=== PATIENT | male | born 1955 | race Caucasian/White ===

== ENCOUNTER 2021-06-30 11:32 | Inpatient (IN) | payer MEDICARE ==
[~2021-06-30] VITALS: Ht 182.9 cm; Wt 79.2 kg
[2021-06-30] MEDS ORDERED: SODIUM CHLORIDE 0.9% 500 ML IV ONE (11:45)
[2021-06-30] MEDS ORDERED: ASPirin 325 MG TAB PO ONE (12:30)
[2021-06-30 13:27] LABS: Basophils # (auto) 0 10 ^3/uL (0-0.2); Basophils % (auto) 0.1 % (0.0-2.0); Eosinophils # (auto) 0 10 ^3/uL (0-0.8); Hematocrit 41.1 % (41.0-53.0); Hemoglobin 14.2 g/dL (13.5-17.5); Lymphocytes # (auto) 0.4 10 ^3/uL (0.4-5.4); Lymphocytes % (auto) 10.2 % (10.0-50.0); Mean Corpuscular Hemoglobin 31.2 pg (28.0-32.0); Mean Corpuscular Hgb Conc. 34.6 g/dL (32.0-36.0); Mean Corpuscular Volume 90.3 fL (80.0-100.0); Monocytes # (auto) 0.4 10 ^3/uL (0-1.3); Monocytes % (auto) 10.9 % (0.0-12.0); Neutrophils # (auto) 2.9 10 ^3/uL (1.6-8.6); Neutrophils % (auto) 78.8 % (37.0-80.0); Nucleated Red Blood Cells % 0.2 %; Red Blood Cells 4.55 10^6/uL (4.5-5.90); Red Cell Distribution Width 13.1 % (11.8-14.3); White Blood Cell 3.7 10^3/uL (4.4-10.8)
[2021-06-30 13:41] LABS: Albumin 2.7 g/dL (3.4-5.0); Calcium 7.7 mg/dL (8.5-10.1); Magnesium 2.2 mg/dL (1.6-2.6); Potassium 3.3 mmol/L (3.5-5.1)
[2021-06-30 13:42] LABS: INR 1.11 (0.9-1.15); Partial Thromboplastin Time 34.5 sec (23.6-33.0)
[2021-06-30 13:46] LABS: BUN/Creatinine Ratio 18.4; Bilirubin, Total 0.5 mg/dL (0.2-1.0); Total Protein 6.6 g/dL (6.4-8.2)
[2021-06-30] MEDS ORDERED: POTASSIUM CHL 20 Meq TABLET PO ONE (14:00)
[2021-06-30] MEDS ORDERED: HEPARIN SODIUM (PORCINE) 5000 UNITS/ML 1ML VIAL IV ONE (14:15)
[2021-06-30] MEDS: HEPARIN DRIP/D5W 100UNITS/ML 250 ML IV SCH (14:45)
[2021-06-30 14:50] LABS: Basophils # (auto) 0 10 ^3/uL (0-0.2); Basophils % (auto) 0.3 % (0.0-2.0); Eosinophils # (auto) 0 10 ^3/uL (0-0.8); Hematocrit 40.8 % (41.0-53.0); Hemoglobin 14.2 g/dL (13.5-17.5); Lymphocytes # (auto) 0.4 10 ^3/uL (0.4-5.4); Lymphocytes % (auto) 12.8 % (10.0-50.0); Mean Corpuscular Hemoglobin 31.1 pg (28.0-32.0); Mean Corpuscular Hgb Conc. 34.7 g/dL (32.0-36.0); Mean Corpuscular Volume 89.7 fL (80.0-100.0); Monocytes # (auto) 0.3 10 ^3/uL (0-1.3); Monocytes % (auto) 9.7 % (0.0-12.0); Neutrophils # (auto) 2.7 10 ^3/uL (1.6-8.6); Neutrophils % (auto) 77.2 % (37.0-80.0); Nucleated Red Blood Cells % 0.2 %; Red Blood Cells 4.55 10^6/uL (4.5-5.90); Red Cell Distribution Width 13.3 % (11.8-14.3); White Blood Cell 3.4 10^3/uL (4.4-10.8)
[2021-06-30 15:28] VITALS: BP 129/71
[2021-06-30] MEDS ORDERED: MORPHINE SULFATE INJECTION 2 MG/ML SYRG IV PRN (15:30)
[2021-06-30] MEDS ORDERED: NITROGLYCERIN 0.4 MG SL TAB SL PRN (15:30)
[2021-06-30] MEDS ORDERED: diphenhdrAMINE HCL 50 MG/1 ML VL IV PRN (15:30)
[2021-06-30] MEDS ORDERED: TEMAZEPAM 15 MG CAP PO PRN (15:30)
[2021-06-30] MEDS ORDERED: traMADol HCL 50 MG TAB PO PRN (15:30)
[2021-06-30] MEDS ORDERED: REMDESIVIR PER PHARMACY 0 ML IV SCH (15:30)
[2021-06-30] MEDS ORDERED: PROMETHAZINE HCL 25 MG/ML 1ML IV PRN (15:30)
[2021-06-30] MEDS ORDERED: IPRATROPIUM BROMIDE HFA AER IN PRN (15:30)
[2021-06-30] MEDS ORDERED: DEXTROSE (50%) 50ML SYRG IV PRN (15:30)
[2021-06-30] MEDS: AZITHROMYCIN 500MG/ 250ML 250 ML IV SCH (16:30)
[2021-06-30] MEDS ORDERED: IPRATROPIUM BROMIDE HFA AER IN SCH (18:00)
[2021-06-30] MEDS ORDERED: REMDESIVIR 200 MG in NS 210ml LOADING DOSE ADULT IV ONE (18:00)
[2021-06-30] MEDS: CHOLECALCIFEROL (VITD3) 2,000 UNIT CAP/TAB PO SCH (18:13)
[2021-06-30] MEDS: cefTRIAXone 1GM/50ML D5W 50 ML IV SCH (18:13)
[2021-06-30] MEDS: IVERMECTIN 3 MG TAB PO SCH (18:15)
[2021-06-30] MEDS: DexAMETHasone SOD PHOS 10MG/1ML VIAL INJ IV SCH (18:15)
[2021-06-30] MEDS: ASCORBIC ACID 1,000 MG TAB PO SCH (18:15)
[2021-06-30] MEDS: ZINC SULFATE 220mg CAP or TAB PO SCH (18:15)
[2021-06-30] MEDS: BUDESONIDE (INHALATION) 180 MCG IH IN SCH (18:30)
[2021-06-30] MEDS: ACCU-CHEK COMFORT CURVE STRIP VI SCH ×2 (18:32→22:00)
[2021-06-30] MEDS: ALBUTEROL SULF HFA 90MCG INH 200DOSE IN PRN (19:20)
[2021-06-30] MEDS: SODIUM CHLORIDE 0.9% 1,000 ML IV SCH ×2 (19:46→22:51)
[2021-06-30 20:04] LABS: Urine Bacteria NONE SEEN /hpf (None Seen); Urine Blood Negative /uL (Negative); Urine Mucus FEW (None Seen); Urine Specific Gravity 1.043 (1.001-1.035); Urine WBC 1 /hpf (0 - 3)
[2021-06-30 20:25] LABS: Amphetamine Screen, Urine NEGATIVE (NEGATIVE); Barbiturate Scree,Urine NEGATIVE (NEGATIVE); Benzodiazephine Screen, Urine NEGATIVE (NEGATIVE); Cannabinoid Screen, Urine NEGATIVE (NEGATIVE); Cocaine Screen, Urine NEGATIVE (NEGATIVE); Opiate Scree,Urine NEGATIVE (NEGATIVE); Phencyclidine Screen, Urine NEGATIVE (NEGATIVE)
[2021-06-30] MEDS: METOPROLOL TARTRATE 25 MG TAB PO SCH (22:00)
[2021-06-30] MEDS: FLORASTOR (S. BOULARDII) 250 MG CAP PO SCH (22:00)
[2021-07-01 02:57] LABS: Basophils # (auto) 0 10 ^3/uL (0-0.2); Basophils % (auto) 0.2 % (0.0-2.0); Eosinophils # (auto) 0 10 ^3/uL (0-0.8); Hematocrit 40.9 % (41.0-53.0); Hemoglobin 14.2 g/dL (13.5-17.5); Lymphocytes # (auto) 0.4 10 ^3/uL (0.4-5.4); Lymphocytes % (auto) 12.5 % (10.0-50.0); Mean Corpuscular Hemoglobin 31.6 pg (28.0-32.0); Mean Corpuscular Hgb Conc. 34.8 g/dL (32.0-36.0); Mean Corpuscular Volume 90.7 fL (80.0-100.0); Monocytes # (auto) 0.4 10 ^3/uL (0-1.3); Monocytes % (auto) 12.5 % (0.0-12.0); Neutrophils # (auto) 2.3 10 ^3/uL (1.6-8.6); Neutrophils % (auto) 74.8 % (37.0-80.0); Nucleated Red Blood Cells % 0.2 %; Red Blood Cells 4.51 10^6/uL (4.5-5.90); Red Cell Distribution Width 13.2 % (11.8-14.3)
[2021-07-01 03:19] LABS: Albumin 2.6 g/dL (3.4-5.0); BUN/Creatinine Ratio 17.5; Calcium 7.8 mg/dL (8.5-10.1); Potassium 3.8 mmol/L (3.5-5.1)
[2021-07-01 03:24] LABS: Bilirubin, Total 0.4 mg/dL (0.2-1.0); Total Protein 6.2 g/dL (6.4-8.2)
[2021-07-01 03:43] LABS: INR 1.1 (0.9-1.15)
[2021-07-01 04:30] LABS: Partial Thromboplastin Time 70.4 sec (23.6-33.0)
[2021-07-01] MEDS: BUDESONIDE (INHALATION) 180 MCG IH IN SCH (07:06)
[2021-07-01] MEDS: ALBUTEROL SULF HFA 90MCG INH 200DOSE IN PRN (07:07)
[2021-07-01 07:35] LABS: INR 1.1 (0.9-1.15); Partial Thromboplastin Time 66.3 sec (23.6-33.0)
[2021-07-01] MEDS: ACCU-CHEK COMFORT CURVE STRIP VI SCH ×4 (07:35→21:58)
[2021-07-01] MEDS: IVERMECTIN 3 MG TAB PO SCH (08:01)
[2021-07-01] MEDS: cefTRIAXone 1GM/50ML D5W 50 ML IV SCH (08:01)
[2021-07-01] MEDS: ASCORBIC ACID 1,000 MG TAB PO SCH (08:02)
[2021-07-01] MEDS: ZINC SULFATE 220mg CAP or TAB PO SCH (08:02)
[2021-07-01] MEDS: ASPirin 81 mg TAB PO SCH (08:02)
[2021-07-01] MEDS: PANTOPRAZOLE 40 MG TAB PO SCH (08:02)
[2021-07-01] MEDS: CHOLECALCIFEROL (VITD3) 2,000 UNIT CAP/TAB PO SCH (08:02)
[2021-07-01] MEDS: DexAMETHasone SOD PHOS 10MG/1ML VIAL INJ IV SCH (08:03)
[2021-07-01] MEDS: FLORASTOR (S. BOULARDII) 250 MG CAP PO SCH ×2 (08:04→11:24)
[2021-07-01] MEDS: METOPROLOL TARTRATE 25 MG TAB PO SCH ×2 (10:00→22:52)
[2021-07-01] MEDS: NITROGLYCERIN 0.2MG/HR TOPICAL PATCH TD SCH (10:00)
[2021-07-01] MEDS: AZITHROMYCIN 500MG/ 250ML 250 ML IV SCH (11:40)
[2021-07-01] MEDS: HEPARIN DRIP/D5W 100UNITS/ML 250 ML IV SCH (14:30)
[2021-07-01] MEDS: REMDESIVIR 100mg 100 MG in SODIUM CHL 0.9% 230 ML IV SCH (15:02)
[2021-07-01 15:46] LABS: INR 1.1 (0.9-1.15); Partial Thromboplastin Time 60.6 sec (23.6-33.0)
[2021-07-01] MEDS ORDERED: FUROSEMIDE 20 MG/2 ML VIAL IV ONE (16:45)
[2021-07-01] MEDS: ENOXAPARIN SOD 80 MG/0.8ML SYRINGE SC SCH (22:51)
[2021-07-02] MEDS: BUDESONIDE (INHALATION) 180 MCG IH IN SCH ×3 (00:58→22:00)
[2021-07-02 06:26] LABS: Basophils # (auto) 0 10 ^3/uL (0-0.2); Eosinophils # (auto) 0 10 ^3/uL (0-0.8); Hematocrit 40.1 % (41.0-53.0); Hemoglobin 14.3 g/dL (13.5-17.5); Lymphocytes # (auto) 0.5 10 ^3/uL (0.4-5.4); Lymphocytes % (auto) 10.7 % (10.0-50.0); Mean Corpuscular Hemoglobin 32.5 pg (28.0-32.0); Mean Corpuscular Hgb Conc. 35.7 g/dL (32.0-36.0); Mean Corpuscular Volume 90.9 fL (80.0-100.0); Monocytes # (auto) 0.7 10 ^3/uL (0-1.3); Monocytes % (auto) 14.6 % (0.0-12.0); Neutrophils # (auto) 3.7 10 ^3/uL (1.6-8.6); Neutrophils % (auto) 74.7 % (37.0-80.0); Nucleated Red Blood Cells % 0.2 %; Red Blood Cells 4.42 10^6/uL (4.5-5.90); Red Cell Distribution Width 13.1 % (11.8-14.3); White Blood Cell 4.9 10^3/uL (4.4-10.8)
[2021-07-02 06:48] LABS: Albumin 2.5 g/dL (3.4-5.0); Calcium 7.8 mg/dL (8.5-10.1); Potassium 3.4 mmol/L (3.5-5.1)
[2021-07-02 06:53] LABS: Bilirubin, Total 0.4 mg/dL (0.2-1.0); Total Protein 6.3 g/dL (6.4-8.2)
[2021-07-02] MEDS: ACCU-CHEK COMFORT CURVE STRIP VI SCH ×4 (07:11→22:06)
[2021-07-02] MEDS: ALBUTEROL SULF HFA 90MCG INH 200DOSE IN PRN (07:41)
[2021-07-02] MEDS: cefTRIAXone 1GM/50ML D5W 50 ML IV SCH (09:24)
[2021-07-02] MEDS: FLORASTOR (S. BOULARDII) 250 MG CAP PO SCH ×2 (10:49→22:05)
[2021-07-02] MEDS: ASPirin 81 mg TAB PO SCH (10:49)
[2021-07-02] MEDS: AZITHROMYCIN 500MG/ 250ML 250 ML IV SCH (10:49)
[2021-07-02] MEDS: METOPROLOL TARTRATE 25 MG TAB PO SCH ×2 (10:50→22:06)
[2021-07-02] MEDS: FUROSEMIDE 20 MG/2 ML VIAL IV SCH (10:50)
[2021-07-02] MEDS: ZINC SULFATE 220mg CAP or TAB PO SCH (10:50)
[2021-07-02] MEDS: ASCORBIC ACID 1,000 MG TAB PO SCH (10:51)
[2021-07-02] MEDS: PANTOPRAZOLE 40 MG TAB PO SCH (10:51)
[2021-07-02] MEDS: CHOLECALCIFEROL (VITD3) 2,000 UNIT CAP/TAB PO SCH (10:51)
[2021-07-02] MEDS: ENOXAPARIN SOD 80 MG/0.8ML SYRINGE SC SCH ×2 (10:51→22:06)
[2021-07-02] MEDS: NITROGLYCERIN 0.2MG/HR TOPICAL PATCH TD SCH (10:53)
[2021-07-02] MEDS: DexAMETHasone SOD PHOS 10MG/1ML VIAL INJ IV SCH (10:53)
[2021-07-02] MEDS ORDERED: POTASSIUM CHL 20 Meq TABLET PO ONE (13:00)
[2021-07-02] MEDS: REMDESIVIR 100mg 100 MG in SODIUM CHL 0.9% 230 ML IV SCH (15:15)
[2021-07-03] MEDS: BUDESONIDE (INHALATION) 180 MCG IH IN SCH ×2 (06:26→22:30)
[2021-07-03] MEDS: ALBUTEROL SULF HFA 90MCG INH 200DOSE IN PRN ×2 (06:26→23:23)
[2021-07-03] MEDS: ACCU-CHEK COMFORT CURVE STRIP VI SCH ×4 (06:36→22:05)
[2021-07-03 08:15] LABS: Potassium 3.2 mmol/L (3.5-5.1)
[2021-07-03 08:26] LABS: Albumin 2.6 g/dL (3.4-5.0); BUN/Creatinine Ratio 21.7; Bilirubin, Total 0.4 mg/dL (0.2-1.0); Total Protein 6.2 g/dL (6.4-8.2)
[2021-07-03] MEDS: cefTRIAXone 1GM/50ML D5W 50 ML IV SCH (08:44)
[2021-07-03] MEDS: DexAMETHasone SOD PHOS 10MG/1ML VIAL INJ IV SCH (09:51)
[2021-07-03] MEDS: FUROSEMIDE 20 MG/2 ML VIAL IV SCH (09:52)
[2021-07-03] MEDS: METOPROLOL TARTRATE 25 MG TAB PO SCH ×2 (09:52→22:04)
[2021-07-03] MEDS: FLORASTOR (S. BOULARDII) 250 MG CAP PO SCH ×2 (09:52→22:40)
[2021-07-03] MEDS: ZINC SULFATE 220mg CAP or TAB PO SCH (09:52)
[2021-07-03] MEDS: PANTOPRAZOLE 40 MG TAB PO SCH (09:52)
[2021-07-03] MEDS: ASPirin 81 mg TAB PO SCH (09:52)
[2021-07-03] MEDS: NITROGLYCERIN 0.2MG/HR TOPICAL PATCH TD SCH (09:53)
[2021-07-03] MEDS: CHOLECALCIFEROL (VITD3) 2,000 UNIT CAP/TAB PO SCH (09:53)
[2021-07-03] MEDS: ASCORBIC ACID 1,000 MG TAB PO SCH (09:53)
[2021-07-03] MEDS: ENOXAPARIN SOD 80 MG/0.8ML SYRINGE SC SCH ×2 (09:53→22:04)
[2021-07-03] MEDS ORDERED: POTASSIUM CHL 20 Meq TABLET PO ONE (10:30)
[2021-07-03] MEDS: AZITHROMYCIN 500MG/ 250ML 250 ML IV SCH (10:44)
[2021-07-03] MEDS: SALINE 0.65 % NASAL SPRAY 45ML BOTTLE EACHNOSTRI SCH ×3 (13:05→22:02)
[2021-07-03] MEDS: REMDESIVIR 100mg 100 MG in SODIUM CHL 0.9% 230 ML IV SCH (15:38)
[2021-07-03 16:08] VITALS: BP 122/60
[2021-07-03] MEDS ORDERED: ACETAMINOPHEN 325 MG TAB PO ONE (22:45)
[2021-07-04] MEDS: SALINE 0.65 % NASAL SPRAY 45ML BOTTLE EACHNOSTRI SCH ×4 (05:49→22:00)
[2021-07-04 06:59] LABS: Albumin 2.4 g/dL (3.4-5.0)
[2021-07-04] MEDS: ACCU-CHEK COMFORT CURVE STRIP VI SCH ×4 (06:59→22:02)
[2021-07-04 07:03] LABS: BUN/Creatinine Ratio 27.4; Bilirubin, Total 0.6 mg/dL (0.2-1.0); Total Protein 5.6 g/dL (6.4-8.2)
[2021-07-04] MEDS ORDERED: POTASSIUM CHL 20 Meq TABLET PO ONE (09:30)
[2021-07-04] MEDS: cefTRIAXone 1GM/50ML D5W 50 ML IV SCH (10:20)
[2021-07-04] MEDS: PANTOPRAZOLE 40 MG TAB PO SCH (10:31)
[2021-07-04] MEDS: AZITHROMYCIN 500MG/ 250ML 250 ML IV SCH (10:32)
[2021-07-04] MEDS: FUROSEMIDE 20 MG/2 ML VIAL IV SCH (10:32)
[2021-07-04] MEDS: ASPirin 81 mg TAB PO SCH (10:32)
[2021-07-04] MEDS: DexAMETHasone SOD PHOS 10MG/1ML VIAL INJ IV SCH (10:32)
[2021-07-04] MEDS: ASCORBIC ACID 1,000 MG TAB PO SCH (10:33)
[2021-07-04] MEDS: CHOLECALCIFEROL (VITD3) 2,000 UNIT CAP/TAB PO SCH (10:33)
[2021-07-04] MEDS: NITROGLYCERIN 0.2MG/HR TOPICAL PATCH TD SCH (10:33)
[2021-07-04] MEDS: ENOXAPARIN SOD 80 MG/0.8ML SYRINGE SC SCH ×2 (10:33→22:01)
[2021-07-04] MEDS: METOPROLOL TARTRATE 25 MG TAB PO SCH ×2 (10:33→22:01)
[2021-07-04] MEDS: ZINC SULFATE 220mg CAP or TAB PO SCH (10:33)
[2021-07-04] MEDS: FLORASTOR (S. BOULARDII) 250 MG CAP PO SCH ×2 (10:34→22:01)
[2021-07-04] MEDS: BUDESONIDE (INHALATION) 180 MCG IH IN SCH ×2 (12:51→20:51)
[2021-07-04] MEDS: ALBUTEROL SULF HFA 90MCG INH 200DOSE IN PRN ×2 (12:52→20:51)
[2021-07-04 13:00] VITALS: BP 123/71
[2021-07-04] MEDS: REMDESIVIR 100mg 100 MG in SODIUM CHL 0.9% 230 ML IV SCH (16:03)
[2021-07-04 16:52] VITALS: BP 110/65
[2021-07-04 22:00] VITALS: BP 145/74
[2021-07-05 05:00] VITALS: BP 148/70
[2021-07-05] MEDS: SALINE 0.65 % NASAL SPRAY 45ML BOTTLE EACHNOSTRI SCH ×4 (06:00→21:39)
[2021-07-05] MEDS: ACCU-CHEK COMFORT CURVE STRIP VI SCH ×4 (06:51→21:40)
[2021-07-05 09:00] VITALS: BP 130/82
[2021-07-05] MEDS: DexAMETHasone SOD PHOS 10MG/1ML VIAL INJ IV SCH (09:24)
[2021-07-05] MEDS: ASPirin 81 mg TAB PO SCH (09:24)
[2021-07-05] MEDS: FUROSEMIDE 20 MG/2 ML VIAL IV SCH (09:24)
[2021-07-05] MEDS: FLORASTOR (S. BOULARDII) 250 MG CAP PO SCH ×2 (09:25→21:39)
[2021-07-05] MEDS: ZINC SULFATE 220mg CAP or TAB PO SCH (09:25)
[2021-07-05] MEDS: METOPROLOL TARTRATE 25 MG TAB PO SCH ×2 (09:26→21:40)
[2021-07-05] MEDS: ASCORBIC ACID 1,000 MG TAB PO SCH (09:26)
[2021-07-05] MEDS: CHOLECALCIFEROL (VITD3) 2,000 UNIT CAP/TAB PO SCH (09:26)
[2021-07-05] MEDS: PANTOPRAZOLE 40 MG TAB PO SCH (09:26)
[2021-07-05] MEDS: NITROGLYCERIN 0.2MG/HR TOPICAL PATCH TD SCH (09:27)
[2021-07-05] MEDS: ENOXAPARIN SOD 80 MG/0.8ML SYRINGE SC SCH ×2 (09:27→21:40)
[2021-07-05] MEDS: BUDESONIDE (INHALATION) 180 MCG IH IN SCH ×2 (09:41→22:01)
[2021-07-05] MEDS: ALBUTEROL SULF HFA 90MCG INH 200DOSE IN PRN ×2 (09:42→22:01)
[2021-07-05] MEDS ORDERED: DEXTROSE (50%) 50ML SYRG IV PRN (11:15)
[2021-07-05] MEDS: ALPRAZolam 0.25 MG TAB PO PRN ×2 (11:54→21:41)
[2021-07-05] MEDS: InsuLIN REG 1unit/0.01ml Soln (100units/ml) SC SCH ×3 (12:30→21:49)
[2021-07-05 13:00] VITALS: BP 130/73
[2021-07-05 13:03] LABS: BUN/Creatinine Ratio 20.2; Calcium 8.4 mg/dL (8.5-10.1); Potassium 3.7 mmol/L (3.5-5.1)
[2021-07-05 17:00] VITALS: BP 130/66
[2021-07-05 20:37] VITALS: BP 136/81
[2021-07-06] VITALS (44 sets, daily range): BP systolic 75–153; BP diastolic 34–102
[2021-07-06] MEDS ORDERED: LORazepam 2MG/ML-1ML VIAL IV PRN (05:45)
[2021-07-06] MEDS: ACCU-CHEK COMFORT CURVE STRIP VI SCH ×4 (06:13→21:48)
[2021-07-06] MEDS: SALINE 0.65 % NASAL SPRAY 45ML BOTTLE EACHNOSTRI SCH ×4 (06:13→19:55)
[2021-07-06] MEDS: InsuLIN REG 1unit/0.01ml Soln (100units/ml) SC SCH ×4 (06:13→21:12)
[2021-07-06] MEDS ORDERED: LORazepam 2MG/ML-1ML VIAL ONE (06:25)
[2021-07-06] MEDS: LORazepam 2MG/ML-1ML VIAL IV PRN ×2 (07:35→17:48)
[2021-07-06] MEDS ORDERED: LORazepam 2MG/ML-1ML VIAL IV ONE (07:45)
[2021-07-06 08:06] LABS: Basophils # (auto) 0 10 ^3/uL (0-0.2); Basophils % (auto) 0.4 % (0.0-2.0); Eosinophils # (auto) 0 10 ^3/uL (0-0.8); Hematocrit 39.6 % (41.0-53.0); Hemoglobin 13.8 g/dL (13.5-17.5); Lymphocytes # (auto) 0.2 10 ^3/uL (0.4-5.4); Lymphocytes % (auto) 1.9 % (10.0-50.0); Mean Corpuscular Hemoglobin 31.3 pg (28.0-32.0); Mean Corpuscular Hgb Conc. 34.9 g/dL (32.0-36.0); Mean Corpuscular Volume 89.7 fL (80.0-100.0); Monocytes # (auto) 0.4 10 ^3/uL (0-1.3); Monocytes % (auto) 4.3 % (0.0-12.0); Neutrophils # (auto) 9.6 10 ^3/uL (1.6-8.6); Neutrophils % (auto) 93.4 % (37.0-80.0); Nucleated Red Blood Cells % 0.1 %; Red Blood Cells 4.41 10^6/uL (4.5-5.90); White Blood Cell 10.3 10^3/uL (4.4-10.8)
[2021-07-06 08:39] LABS: Albumin 2.7 g/dL (3.4-5.0); Calcium 8.2 mg/dL (8.5-10.1); Potassium 3.3 mmol/L (3.5-5.1)
[2021-07-06 08:43] LABS: BUN/Creatinine Ratio 19.8; Bilirubin, Total 1.2 mg/dL (0.2-1.0); Total Protein 6.2 g/dL (6.4-8.2)
[2021-07-06] MEDS: FUROSEMIDE 20 MG/2 ML VIAL IV SCH (09:38)
[2021-07-06] MEDS: DexAMETHasone SOD PHOS 10MG/1ML VIAL INJ IV SCH (09:38)
[2021-07-06] MEDS: PANTOPRAZOLE 40 MG TAB PO SCH (09:39)
[2021-07-06] MEDS: FLORASTOR (S. BOULARDII) 250 MG CAP PO SCH ×2 (09:39→21:53)
[2021-07-06] MEDS: ZINC SULFATE 220mg CAP or TAB PO SCH (09:39)
[2021-07-06] MEDS: ASPirin 81 mg TAB PO SCH (09:39)
[2021-07-06] MEDS: METOPROLOL TARTRATE 25 MG TAB PO SCH ×2 (09:39→21:11)
[2021-07-06] MEDS: ASCORBIC ACID 1,000 MG TAB PO SCH (09:40)
[2021-07-06] MEDS: CHOLECALCIFEROL (VITD3) 2,000 UNIT CAP/TAB PO SCH (09:40)
[2021-07-06] MEDS: ENOXAPARIN SOD 80 MG/0.8ML SYRINGE SC SCH ×2 (09:40→21:48)
[2021-07-06] MEDS: NITROGLYCERIN 0.2MG/HR TOPICAL PATCH TD SCH (09:42)
[2021-07-06] MEDS: BUDESONIDE (INHALATION) 180 MCG IH IN SCH (10:00)
[2021-07-06] MEDS ORDERED: POTASSIUM CHLORIDE 40 MEQ, LIDOCAINE 1% (LOCAL ANESTH.) 4 ML in SODIUM CHL 0.9% 250 ML IV ONE (11:30)
[2021-07-06] MEDS ORDERED: HALOPERIDOL LACTATE 5 MG/ML INJ VIAL IM ONE (15:30)
[2021-07-06] MEDS ORDERED: ETOMIDATE (2MG/ML) 20ML VIAL IV ONE (18:24)
[2021-07-06] MEDS ORDERED: ROCURONIUM 10MG/ML 10ML VIAL IV ONE (18:25)
[2021-07-06] MEDS ORDERED: MIDAZOLAM DRIP 50 mg/50mL 50 ML IV ONE (18:39)
[2021-07-06] MEDS ORDERED: NOREPINEPHRINE 8 MG/250ML KIT 250 ML IV ONE (18:40)
[2021-07-06] MEDS ORDERED: PROPOFOL 100 ML IV ONE (18:40)
[2021-07-06] MEDS ORDERED: fentaNYL Drip 2500mCg/250mlNS 250 ML IV ONE (18:40)
[2021-07-06] MEDS: MIDAZOLAM DRIP 50 mg/50mL 50 ML IV SCH (18:45)
[2021-07-06] MEDS: PROPOFOL 100 ML IV SCH (18:45)
[2021-07-06] MEDS ORDERED: ACETAMINOPHEN 650 MG RECT SUPP PR ONE (21:31)
[2021-07-06] MEDS: NOREPINEPHRINE 8 MG/250ML KIT 250 ML IV SCH (21:49)
[2021-07-07] VITALS (101 sets, daily range): BP systolic 86–114; BP diastolic 56–70
[2021-07-07] MEDS: PROPOFOL 100 ML IV SCH ×5 (02:59→21:07)
[2021-07-07 04:28] LABS: Albumin 2.6 g/dL (3.4-5.0); Calcium 8.5 mg/dL (8.5-10.1); Magnesium 3.2 mg/dL (1.6-2.6); Potassium 3.4 mmol/L (3.5-5.1)
[2021-07-07 04:36] LABS: Bilirubin, Total 1.1 mg/dL (0.2-1.0); CRP High Sensitivity 15.2 mg/dL (< 0.3); Total Protein 6.8 g/dL (6.4-8.2)
[2021-07-07] MEDS: SALINE 0.65 % NASAL SPRAY 45ML BOTTLE EACHNOSTRI SCH ×4 (06:00→21:05)
[2021-07-07] MEDS: InsuLIN REG 1unit/0.01ml Soln (100units/ml) SC SCH ×4 (06:11→21:29)
[2021-07-07] MEDS: ACCU-CHEK COMFORT CURVE STRIP VI SCH ×4 (06:11→21:30)
[2021-07-07] MEDS: fentaNYL Drip 2500mCg/250mlNS 250 ML IV SCH ×2 (09:05→21:05)
[2021-07-07] MEDS: MIDAZOLAM DRIP 50 mg/50mL 50 ML IV SCH ×4 (09:17→21:07)
[2021-07-07] MEDS: METOPROLOL TARTRATE 25 MG TAB PO SCH (10:00)
[2021-07-07] MEDS: NITROGLYCERIN 0.2MG/HR TOPICAL PATCH TD SCH (10:00)
[2021-07-07] MEDS: PANTOPRAZOLE 40 MG TAB PO SCH (10:00)
[2021-07-07] MEDS: DexAMETHasone SOD PHOS 10MG/1ML VIAL INJ IV SCH (10:16)
[2021-07-07] MEDS: FUROSEMIDE 20 MG/2 ML VIAL IV SCH (10:16)
[2021-07-07] MEDS: ASCORBIC ACID 1,000 MG TAB PO SCH (10:16)
[2021-07-07] MEDS: ZINC SULFATE 220mg CAP or TAB PO SCH (10:17)
[2021-07-07] MEDS: FLORASTOR (S. BOULARDII) 250 MG CAP PO SCH ×2 (10:17→21:06)
[2021-07-07] MEDS: CHOLECALCIFEROL (VITD3) 2,000 UNIT CAP/TAB PO SCH (10:17)
[2021-07-07] MEDS: ASPirin 81 mg TAB PO SCH (10:17)
[2021-07-07] MEDS: ENOXAPARIN SOD 80 MG/0.8ML SYRINGE SC SCH ×2 (10:20→21:07)
[2021-07-07] MEDS ORDERED: POTASSIUM EFFERVESENT TAB 25 MEQ GT ONE (15:00)
[2021-07-07] MEDS ORDERED: PIPERACILLIN-TAZOB 3.375GM 100 ML IV ONE (15:00)
[2021-07-07] MEDS ORDERED: FAMOTIDINE (10MG/ML) 2ML VL IV ONE (15:00)
[2021-07-07] MEDS: NOREPINEPHRINE 8 MG/250ML KIT 250 ML IV SCH (17:58)
[2021-07-07] MEDS: PIPERACILLIN-TAZOB 3.375GM 100 ML IV SCH (21:06)
[2021-07-08] VITALS (103 sets, daily range): BP systolic 87–118; BP diastolic 52–77
[2021-07-08 05:25] LABS: BUN/Creatinine Ratio 22.5; Calcium 8.6 mg/dL (8.5-10.1); Potassium 3.7 mmol/L (3.5-5.1)
[2021-07-08] MEDS: ACCU-CHEK COMFORT CURVE STRIP VI SCH ×4 (05:31→22:00)
[2021-07-08] MEDS: PIPERACILLIN-TAZOB 3.375GM 100 ML IV SCH ×5 (05:31→22:20)
[2021-07-08] MEDS: SALINE 0.65 % NASAL SPRAY 45ML BOTTLE EACHNOSTRI SCH ×4 (05:32→22:20)
[2021-07-08] MEDS: InsuLIN REG 1unit/0.01ml Soln (100units/ml) SC SCH ×4 (05:32→22:00)
[2021-07-08] MEDS: PROPOFOL 100 ML IV SCH ×2 (05:36→22:21)
[2021-07-08] MEDS: MIDAZOLAM DRIP 50 mg/50mL 50 ML IV SCH ×4 (05:37→22:21)
[2021-07-08 05:54] LABS: Basophils # (auto) 0 10 ^3/uL (0-0.2); Basophils % (auto) 0.2 % (0.0-2.0); Eosinophils # (auto) 0 10 ^3/uL (0-0.8); Eosinophils % (auto) 0.1 % (0.0-7.0); Hematocrit 41.6 % (41.0-53.0); Lymphocytes # (auto) 0.2 10 ^3/uL (0.4-5.4); Lymphocytes % (auto) 1.1 % (10.0-50.0); Mean Corpuscular Hemoglobin 31.1 pg (28.0-32.0); Mean Corpuscular Hgb Conc. 33.8 g/dL (32.0-36.0); Mean Corpuscular Volume 92.2 fL (80.0-100.0); Monocytes # (auto) 0.2 10 ^3/uL (0-1.3); Neutrophils # (auto) 15.2 10 ^3/uL (1.6-8.6); Neutrophils % (auto) 97.6 % (37.0-80.0); Red Blood Cells 4.51 10^6/uL (4.5-5.90); Red Cell Distribution Width 13.3 % (11.8-14.3); White Blood Cell 15.6 10^3/uL (4.4-10.8)
[2021-07-08] MEDS: POTASSIUM EFFERVESENT TAB 25 MEQ GT SCH (10:22)
[2021-07-08] MEDS: ASPirin 81 mg TAB PO SCH (10:24)
[2021-07-08] MEDS: CHOLECALCIFEROL (VITD3) 2,000 UNIT CAP/TAB PO SCH (10:24)
[2021-07-08] MEDS: ZINC SULFATE 220mg CAP or TAB PO SCH (10:24)
[2021-07-08] MEDS: FLORASTOR (S. BOULARDII) 250 MG CAP PO SCH ×2 (10:24→22:00)
[2021-07-08] MEDS: ENOXAPARIN SOD 80 MG/0.8ML SYRINGE SC SCH ×2 (10:25→22:20)
[2021-07-08] MEDS: ASCORBIC ACID 1,000 MG TAB PO SCH (10:25)
[2021-07-08] MEDS: FAMOTIDINE (10MG/ML) 2ML VL IV SCH (10:26)
[2021-07-08] MEDS: FUROSEMIDE 20 MG/2 ML VIAL IV SCH (10:26)
[2021-07-08] MEDS: DexAMETHasone SOD PHOS 10MG/1ML VIAL INJ IV SCH (10:27)
[2021-07-08] MEDS: fentaNYL Drip 2500mCg/250mlNS 250 ML IV SCH ×2 (10:30→22:23)
[2021-07-08] MEDS: ACETAMINOPHEN 650 MG RECT SUPP PR PRN (14:37)
[2021-07-08] MEDS: NOREPINEPHRINE 8 MG/250ML KIT 250 ML IV SCH (16:00)
[2021-07-09] VITALS (104 sets, daily range): BP systolic 94–137; BP diastolic 52–83
[2021-07-09] MEDS: PROPOFOL 100 ML IV SCH ×3 (02:08→10:01)
[2021-07-09] MEDS: MIDAZOLAM DRIP 50 mg/50mL 50 ML IV SCH ×4 (02:09→21:25)
[2021-07-09 05:51] LABS: Basophils # (auto) 0 10 ^3/uL (0-0.2); Basophils % (auto) 0.2 % (0.0-2.0); Eosinophils # (auto) 0 10 ^3/uL (0-0.8); Hematocrit 38.3 % (41.0-53.0); Hemoglobin 13.1 g/dL (13.5-17.5); Lymphocytes # (auto) 0.2 10 ^3/uL (0.4-5.4); Mean Corpuscular Hemoglobin 31.8 pg (28.0-32.0); Mean Corpuscular Hgb Conc. 34.3 g/dL (32.0-36.0); Mean Corpuscular Volume 92.7 fL (80.0-100.0); Monocytes # (auto) 0.2 10 ^3/uL (0-1.3); Monocytes % (auto) 1.9 % (0.0-12.0); Neutrophils # (auto) 11.1 10 ^3/uL (1.6-8.6); Neutrophils % (auto) 95.9 % (37.0-80.0); Nucleated Red Blood Cells % 0.1 %; Red Blood Cells 4.13 10^6/uL (4.5-5.90); Red Cell Distribution Width 13.3 % (11.8-14.3); White Blood Cell 11.5 10^3/uL (4.4-10.8)
[2021-07-09] MEDS: SALINE 0.65 % NASAL SPRAY 45ML BOTTLE EACHNOSTRI SCH ×4 (06:00→22:19)
[2021-07-09 06:07] LABS: BUN/Creatinine Ratio 25.3; Calcium 8.7 mg/dL (8.5-10.1); Magnesium 3.5 mg/dL (1.6-2.6); Potassium 4.1 mmol/L (3.5-5.1)
[2021-07-09] MEDS: ACCU-CHEK COMFORT CURVE STRIP VI SCH ×4 (06:38→22:20)
[2021-07-09] MEDS: InsuLIN REG 1unit/0.01ml Soln (100units/ml) SC SCH ×4 (06:38→22:24)
[2021-07-09] MEDS: DexAMETHasone SOD PHOS 10MG/1ML VIAL INJ IV SCH (10:01)
[2021-07-09] MEDS: POTASSIUM EFFERVESENT TAB 25 MEQ GT SCH (10:01)
[2021-07-09] MEDS: ASPirin 81 mg TAB PO SCH (10:02)
[2021-07-09] MEDS: ASCORBIC ACID 1,000 MG TAB PO SCH (10:02)
[2021-07-09] MEDS: FAMOTIDINE (10MG/ML) 2ML VL IV SCH (10:02)
[2021-07-09] MEDS: FUROSEMIDE 40 MG/4 ML VIAL IV SCH (10:02)
[2021-07-09] MEDS: ZINC SULFATE 220mg CAP or TAB PO SCH (10:02)
[2021-07-09] MEDS: CHOLECALCIFEROL (VITD3) 2,000 UNIT CAP/TAB PO SCH (10:03)
[2021-07-09] MEDS: ENOXAPARIN SOD 80 MG/0.8ML SYRINGE SC SCH ×2 (10:03→22:20)
[2021-07-09] MEDS: FLORASTOR (S. BOULARDII) 250 MG CAP PO SCH ×2 (10:03→22:20)
[2021-07-09] MEDS: fentaNYL Drip 2500mCg/250mlNS 250 ML IV SCH (12:03)
[2021-07-09] MEDS: NOREPINEPHRINE 8 MG/250ML KIT 250 ML IV SCH (17:07)
[2021-07-09] MEDS: PIPERACILLIN-TAZOB 3.375GM 100 ML IV SCH (22:19)
[2021-07-10] VITALS (101 sets, daily range): BP systolic 100–154; BP diastolic 58–92
[2021-07-10 03:37] LABS: Basophils # (auto) 0 10 ^3/uL (0-0.2); Basophils % (auto) 0.1 % (0.0-2.0); Eosinophils # (auto) 0 10 ^3/uL (0-0.8); Hematocrit 37.3 % (41.0-53.0); Hemoglobin 12.9 g/dL (13.5-17.5); Lymphocytes # (auto) 0.2 10 ^3/uL (0.4-5.4); Lymphocytes % (auto) 1.6 % (10.0-50.0); Mean Corpuscular Hgb Conc. 34.7 g/dL (32.0-36.0); Mean Corpuscular Volume 92.3 fL (80.0-100.0); Monocytes # (auto) 0.4 10 ^3/uL (0-1.3); Monocytes % (auto) 3.9 % (0.0-12.0); Neutrophils # (auto) 10.3 10 ^3/uL (1.6-8.6); Neutrophils % (auto) 94.4 % (37.0-80.0); Red Blood Cells 4.03 10^6/uL (4.5-5.90); Red Cell Distribution Width 13.4 % (11.8-14.3); White Blood Cell 10.9 10^3/uL (4.4-10.8)
[2021-07-10 03:58] LABS: Albumin 1.9 g/dL (3.4-5.0); Calcium 8.3 mg/dL (8.5-10.1); Magnesium 3.4 mg/dL (1.6-2.6); Potassium 4.1 mmol/L (3.5-5.1)
[2021-07-10 04:07] LABS: BUN/Creatinine Ratio 30.9; Bilirubin, Total 0.4 mg/dL (0.2-1.0); CRP High Sensitivity 8.53 mg/dL (< 0.3); Total Protein 6.6 g/dL (6.4-8.2)
[2021-07-10] MEDS: PIPERACILLIN-TAZOB 3.375GM 100 ML IV SCH ×3 (06:28→21:56)
[2021-07-10] MEDS: SALINE 0.65 % NASAL SPRAY 45ML BOTTLE EACHNOSTRI SCH ×4 (06:28→21:54)
[2021-07-10] MEDS: InsuLIN REG 1unit/0.01ml Soln (100units/ml) SC SCH ×4 (06:29→22:00)
[2021-07-10] MEDS: ACCU-CHEK COMFORT CURVE STRIP VI SCH ×4 (06:29→21:58)
[2021-07-10] MEDS: DexAMETHasone SOD PHOS 10MG/1ML VIAL INJ IV SCH (09:50)
[2021-07-10] MEDS: POTASSIUM EFFERVESENT TAB 25 MEQ GT SCH (09:50)
[2021-07-10] MEDS: CHOLECALCIFEROL (VITD3) 2,000 UNIT CAP/TAB PO SCH (10:00)
[2021-07-10] MEDS: FAMOTIDINE (10MG/ML) 2ML VL IV SCH (10:00)
[2021-07-10] MEDS: ZINC SULFATE 220mg CAP or TAB PO SCH (10:00)
[2021-07-10] MEDS: ASCORBIC ACID 1,000 MG TAB PO SCH (10:00)
[2021-07-10] MEDS: ASPirin 81 mg TAB PO SCH (10:00)
[2021-07-10] MEDS: FLORASTOR (S. BOULARDII) 250 MG CAP PO SCH ×2 (10:00→21:56)
[2021-07-10] MEDS: ENOXAPARIN SOD 80 MG/0.8ML SYRINGE SC SCH ×2 (10:00→21:57)
[2021-07-10] MEDS: FUROSEMIDE 40 MG/4 ML VIAL IV SCH (11:04)
[2021-07-10] MEDS: ACETAMINOPHEN 650 MG RECT SUPP PR PRN (15:55)
[2021-07-10] MEDS: PROPOFOL 100 ML IV SCH (16:28)
[2021-07-10] MEDS: NOREPINEPHRINE 8 MG/250ML KIT 250 ML IV SCH (18:10)
[2021-07-10] MEDS: MIDAZOLAM DRIP 50 mg/50mL 50 ML IV SCH (22:04)
[2021-07-11] VITALS (102 sets, daily range): BP systolic 83–126; BP diastolic 41–76
[2021-07-11] MEDS: fentaNYL Drip 2500mCg/250mlNS 250 ML IV SCH ×2 (00:41→12:38)
[2021-07-11] MEDS: PIPERACILLIN-TAZOB 3.375GM 100 ML IV SCH ×3 (06:00→21:52)
[2021-07-11] MEDS: SALINE 0.65 % NASAL SPRAY 45ML BOTTLE EACHNOSTRI SCH ×4 (06:00→21:52)
[2021-07-11] MEDS: ACCU-CHEK COMFORT CURVE STRIP VI SCH ×4 (06:34→21:53)
[2021-07-11] MEDS: InsuLIN REG 1unit/0.01ml Soln (100units/ml) SC SCH ×4 (06:35→21:56)
[2021-07-11] MEDS: ASPirin 81 mg TAB PO SCH (09:01)
[2021-07-11] MEDS: DexAMETHasone SOD PHOS 10MG/1ML VIAL INJ IV SCH (09:01)
[2021-07-11] MEDS: FUROSEMIDE 40 MG/4 ML VIAL IV SCH (09:02)
[2021-07-11] MEDS: ENOXAPARIN SOD 80 MG/0.8ML SYRINGE SC SCH ×2 (09:02→21:53)
[2021-07-11] MEDS: CHOLECALCIFEROL (VITD3) 2,000 UNIT CAP/TAB PO SCH (09:02)
[2021-07-11] MEDS: FAMOTIDINE (10MG/ML) 2ML VL IV SCH (09:03)
[2021-07-11] MEDS: POTASSIUM EFFERVESENT TAB 25 MEQ GT SCH (09:03)
[2021-07-11] MEDS: ASCORBIC ACID 1,000 MG TAB PO SCH (09:03)
[2021-07-11] MEDS: FLORASTOR (S. BOULARDII) 250 MG CAP PO SCH ×2 (09:04→21:52)
[2021-07-11] MEDS: ZINC SULFATE 220mg CAP or TAB PO SCH (09:04)
[2021-07-11] MEDS: PROPOFOL 100 ML IV SCH ×2 (09:57→21:10)
[2021-07-11] MEDS: MIDAZOLAM DRIP 50 mg/50mL 50 ML IV SCH ×3 (10:01→21:56)
[2021-07-11 12:18] LABS: Albumin 1.8 g/dL (3.4-5.0); Calcium 8.6 mg/dL (8.5-10.1); Potassium 4.2 mmol/L (3.5-5.1)
[2021-07-11 12:26] LABS: BUN/Creatinine Ratio 40.2; Bilirubin, Total 0.6 mg/dL (0.2-1.0); CRP High Sensitivity 17.4 mg/dL (< 0.3); Total Protein 6.6 g/dL (6.4-8.2)
[2021-07-11] MEDS: NOREPINEPHRINE 8 MG/250ML KIT 250 ML IV SCH (18:45)
[2021-07-12] VITALS (100 sets, daily range): BP systolic 88–131; BP diastolic 54–78
[2021-07-12] MEDS: fentaNYL Drip 2500mCg/250mlNS 250 ML IV SCH ×2 (00:13→12:18)
[2021-07-12] MEDS: MIDAZOLAM DRIP 50 mg/50mL 50 ML IV SCH ×4 (03:23→21:46)
[2021-07-12] MEDS: ACETAMINOPHEN 650 MG RECT SUPP PR PRN ×2 (05:17→14:01)
[2021-07-12] MEDS: PIPERACILLIN-TAZOB 3.375GM 100 ML IV SCH ×3 (05:44→21:06)
[2021-07-12] MEDS: SALINE 0.65 % NASAL SPRAY 45ML BOTTLE EACHNOSTRI SCH ×4 (05:44→21:06)
[2021-07-12] MEDS: InsuLIN REG 1unit/0.01ml Soln (100units/ml) SC SCH ×4 (06:23→21:50)
[2021-07-12] MEDS: ACCU-CHEK COMFORT CURVE STRIP VI SCH ×4 (06:23→21:06)
[2021-07-12] MEDS: PROPOFOL 100 ML IV SCH ×2 (08:54→21:46)
[2021-07-12] MEDS: POTASSIUM EFFERVESENT TAB 25 MEQ GT SCH (09:24)
[2021-07-12] MEDS: DexAMETHasone SOD PHOS 10MG/1ML VIAL INJ IV SCH (09:25)
[2021-07-12] MEDS: FUROSEMIDE 40 MG/4 ML VIAL IV SCH (09:25)
[2021-07-12] MEDS: ZINC SULFATE 220mg CAP or TAB PO SCH (09:26)
[2021-07-12] MEDS: FLORASTOR (S. BOULARDII) 250 MG CAP PO SCH ×2 (09:26→21:06)
[2021-07-12] MEDS: ASCORBIC ACID 1,000 MG TAB PO SCH (09:26)
[2021-07-12] MEDS: CHOLECALCIFEROL (VITD3) 2,000 UNIT CAP/TAB PO SCH (09:27)
[2021-07-12] MEDS: ASPirin 81 mg TAB PO SCH (09:27)
[2021-07-12] MEDS: ENOXAPARIN SOD 80 MG/0.8ML SYRINGE SC SCH (09:28)
[2021-07-12] MEDS: FAMOTIDINE (10MG/ML) 2ML VL IV SCH (09:30)
[2021-07-12] MEDS: NOREPINEPHRINE 8 MG/250ML KIT 250 ML IV SCH (18:45)
[2021-07-12] MEDS: PANTOPRAZOLE 40 MG/10 ML VIAL INJ IV SCH (21:06)
[2021-07-13] VITALS (100 sets, daily range): BP systolic 87–135; BP diastolic 57–76
[2021-07-13] MEDS: fentaNYL Drip 2500mCg/250mlNS 250 ML IV SCH ×3 (00:31→20:36)
[2021-07-13 04:32] LABS: Basophils # (auto) 0 10 ^3/uL (0-0.2); Basophils % (auto) 0.2 % (0.0-2.0); Eosinophils # (auto) 0 10 ^3/uL (0-0.8); Hematocrit 35.8 % (41.0-53.0); Hemoglobin 12.4 g/dL (13.5-17.5); Lymphocytes # (auto) 0.2 10 ^3/uL (0.4-5.4); Lymphocytes % (auto) 2.2 % (10.0-50.0); Mean Corpuscular Hemoglobin 32.1 pg (28.0-32.0); Mean Corpuscular Hgb Conc. 34.5 g/dL (32.0-36.0); Monocytes # (auto) 0.3 10 ^3/uL (0-1.3); Monocytes % (auto) 4.1 % (0.0-12.0); Neutrophils # (auto) 7.9 10 ^3/uL (1.6-8.6); Neutrophils % (auto) 93.5 % (37.0-80.0); Red Blood Cells 3.85 10^6/uL (4.5-5.90); Red Cell Distribution Width 13.3 % (11.8-14.3); White Blood Cell 8.4 10^3/uL (4.4-10.8)
[2021-07-13 04:54] LABS: Albumin 1.6 g/dL (3.4-5.0); Anion Gap 5 (5-15); BUN/Creatinine Ratio 40.5; Blood Urea Nitrogen 34 mg/dL (7-18); Calcium 8.4 mg/dL (8.5-10.1); Carbon Dioxide 35 mmol/L (21-32); Chloride 98 mmol/L (98-107); GFR African American 118 mL/min; GFR Non-African American 97 mL/min; Glucose 145 mg/dL (74-106); Potassium 3.7 mmol/L (3.5-5.1); Sodium 138 mmol/L (136-145)
[2021-07-13 05:02] LABS: Alanine Aminotransferase 24 U/L (16-61); Alkaline Phosphatase 47 U/L (45-117); Aspartate Aminotransferase 18 U/L (15-37); Bilirubin, Total 0.6 mg/dL (0.2-1.0); Total Protein 6.9 g/dL (6.4-8.2)
[2021-07-13 05:12] LABS: CRP High Sensitivity > 19.0 mg/dL (< 0.3)
[2021-07-13] MEDS: ACCU-CHEK COMFORT CURVE STRIP VI SCH ×4 (06:05→21:42)
[2021-07-13] MEDS: PIPERACILLIN-TAZOB 3.375GM 100 ML IV SCH ×3 (06:05→21:41)
[2021-07-13] MEDS: InsuLIN REG 1unit/0.01ml Soln (100units/ml) SC SCH ×4 (06:05→21:43)
[2021-07-13] MEDS: SALINE 0.65 % NASAL SPRAY 45ML BOTTLE EACHNOSTRI SCH ×4 (06:06→21:37)
[2021-07-13] MEDS: MIDAZOLAM DRIP 50 mg/50mL 50 ML IV SCH ×2 (08:12→16:30)
[2021-07-13] MEDS: PANTOPRAZOLE 40 MG/10 ML VIAL INJ IV SCH ×2 (09:18→21:41)
[2021-07-13] MEDS: FLORASTOR (S. BOULARDII) 250 MG CAP PO SCH ×2 (09:18→21:41)
[2021-07-13] MEDS: DexAMETHasone SOD PHOS 10MG/1ML VIAL INJ IV SCH (09:18)
[2021-07-13] MEDS: FUROSEMIDE 40 MG/4 ML VIAL IV SCH ×2 (09:18→21:41)
[2021-07-13] MEDS: ZINC SULFATE 220mg CAP or TAB PO SCH (09:18)
[2021-07-13] MEDS: ASPirin 81 mg TAB PO SCH (09:18)
[2021-07-13] MEDS: POTASSIUM EFFERVESENT TAB 25 MEQ GT SCH (09:18)
[2021-07-13] MEDS: CHOLECALCIFEROL (VITD3) 2,000 UNIT CAP/TAB PO SCH (09:19)
[2021-07-13] MEDS: ASCORBIC ACID 1,000 MG TAB PO SCH (09:19)
[2021-07-13] MEDS: PROPOFOL 100 ML IV SCH ×2 (10:51→16:30)
[2021-07-13] MEDS: ACETAMINOPHEN 650 MG RECT SUPP PR PRN (11:26)
[2021-07-13] MEDS: TOCILIZUMAB 400 MG in SODIUM CHL 0.9% 80 ML IV SCH (16:30)
[2021-07-13] MEDS: NOREPINEPHRINE 8 MG/250ML KIT 250 ML IV SCH (18:45)
[2021-07-14] VITALS (99 sets, daily range): BP systolic 96–123; BP diastolic 60–79
[2021-07-14] MEDS: SALINE 0.65 % NASAL SPRAY 45ML BOTTLE EACHNOSTRI SCH ×4 (05:29→23:53)
[2021-07-14] MEDS: PIPERACILLIN-TAZOB 3.375GM 100 ML IV SCH ×3 (05:30→23:53)
[2021-07-14] MEDS: FUROSEMIDE 40 MG/4 ML VIAL IV SCH ×2 (05:30→17:39)
[2021-07-14] MEDS: InsuLIN REG 1unit/0.01ml Soln (100units/ml) SC SCH ×4 (07:00→23:56)
[2021-07-14] MEDS: ACCU-CHEK COMFORT CURVE STRIP VI SCH ×4 (07:17→23:56)
[2021-07-14] MEDS: MIDAZOLAM DRIP 50 mg/50mL 50 ML IV SCH ×2 (08:00→12:20)
[2021-07-14] MEDS: fentaNYL Drip 2500mCg/250mlNS 250 ML IV SCH (09:00)
[2021-07-14] MEDS: DexAMETHasone SOD PHOS 10MG/1ML VIAL INJ IV SCH (09:52)
[2021-07-14] MEDS: ZINC SULFATE 220mg CAP or TAB PO SCH (09:52)
[2021-07-14] MEDS: CHOLECALCIFEROL (VITD3) 2,000 UNIT CAP/TAB PO SCH (09:52)
[2021-07-14] MEDS: ASPirin 81 mg TAB PO SCH (09:52)
[2021-07-14] MEDS: ASCORBIC ACID 1,000 MG TAB PO SCH (09:52)
[2021-07-14] MEDS: POTASSIUM EFFERVESENT TAB 25 MEQ GT SCH (09:52)
[2021-07-14] MEDS: PANTOPRAZOLE 40 MG/10 ML VIAL INJ IV SCH ×2 (09:52→23:53)
[2021-07-14] MEDS: FLORASTOR (S. BOULARDII) 250 MG CAP PO SCH ×2 (09:52→23:53)
[2021-07-14] MEDS: TOCILIZUMAB 400 MG in SODIUM CHL 0.9% 80 ML IV SCH (09:55)
[2021-07-14] MEDS: Jevity 1.2 Cal/Fiber 1 Liter GT SCH (12:00)
[2021-07-14] MEDS: NOREPINEPHRINE 8 MG/250ML KIT 250 ML IV SCH (18:45)
[2021-07-14] MEDS: PROPOFOL 100 ML IV SCH (23:57)
[2021-07-15] VITALS (98 sets, daily range): BP systolic 86–136; BP diastolic 57–85
[2021-07-15 04:36] LABS: Basophils # (auto) 0 10 ^3/uL (0-0.2); Basophils % (auto) 0.1 % (0.0-2.0); Eosinophils # (auto) 0 10 ^3/uL (0-0.8); Eosinophils % (auto) 0.2 % (0.0-7.0); Hematocrit 38.6 % (41.0-53.0); Hemoglobin 13.1 g/dL (13.5-17.5); Lymphocytes # (auto) 0.4 10 ^3/uL (0.4-5.4); Lymphocytes % (auto) 5.3 % (10.0-50.0); Mean Corpuscular Hemoglobin 31.7 pg (28.0-32.0); Mean Corpuscular Hgb Conc. 33.9 g/dL (32.0-36.0); Mean Corpuscular Volume 93.6 fL (80.0-100.0); Monocytes # (auto) 0.4 10 ^3/uL (0-1.3); Monocytes % (auto) 5.5 % (0.0-12.0); Neutrophils # (auto) 5.9 10 ^3/uL (1.6-8.6); Neutrophils % (auto) 88.9 % (37.0-80.0); Red Blood Cells 4.12 10^6/uL (4.5-5.90); Red Cell Distribution Width 13.5 % (11.8-14.3); White Blood Cell 6.6 10^3/uL (4.4-10.8)
[2021-07-15 04:50] LABS: Calcium 8.7 mg/dL (8.5-10.1); Potassium 3.6 mmol/L (3.5-5.1)
[2021-07-15 04:52] LABS: BUN/Creatinine Ratio 48.8
[2021-07-15] MEDS ORDERED: ALBUTEROL SULF 2.5 MG/0.5ML(0.5%) NEB SOLN ONE (05:45)
[2021-07-15] MEDS ORDERED: BUDESONIDE (INHALATION) 0.5 MG/2 ML NEB ONE (05:45)
[2021-07-15] MEDS: ALBUTEROL SULF 2.5 MG/0.5ML(0.5%) NEB SOLN HHN SCH (06:00)
[2021-07-15] MEDS: SALINE 0.65 % NASAL SPRAY 45ML BOTTLE EACHNOSTRI SCH ×4 (06:56→21:58)
[2021-07-15] MEDS: FUROSEMIDE 40 MG/4 ML VIAL IV SCH ×2 (06:59→18:08)
[2021-07-15] MEDS: PIPERACILLIN-TAZOB 3.375GM 100 ML IV SCH ×3 (07:04→22:02)
[2021-07-15] MEDS: InsuLIN REG 1unit/0.01ml Soln (100units/ml) SC SCH ×4 (07:07→21:56)
[2021-07-15] MEDS: ACCU-CHEK COMFORT CURVE STRIP VI SCH ×4 (07:08→21:55)
[2021-07-15] MEDS: DexAMETHasone SOD PHOS 10MG/1ML VIAL INJ IV SCH (10:17)
[2021-07-15] MEDS: ASPirin 81 mg TAB PO SCH (10:17)
[2021-07-15] MEDS: POTASSIUM EFFERVESENT TAB 25 MEQ GT SCH (10:17)
[2021-07-15] MEDS: ZINC SULFATE 220mg CAP or TAB PO SCH (10:17)
[2021-07-15] MEDS: PANTOPRAZOLE 40 MG/10 ML VIAL INJ IV SCH ×2 (10:17→21:56)
[2021-07-15] MEDS: CHOLECALCIFEROL (VITD3) 2,000 UNIT CAP/TAB PO SCH (10:18)
[2021-07-15] MEDS: ASCORBIC ACID 1,000 MG TAB PO SCH (10:18)
[2021-07-15] MEDS: FLORASTOR (S. BOULARDII) 250 MG CAP PO SCH ×2 (10:18→21:56)
[2021-07-15] MEDS: PROPOFOL 100 ML IV SCH ×2 (13:09→23:19)
[2021-07-15] MEDS: MIDAZOLAM DRIP 50 mg/50mL 50 ML IV SCH ×2 (13:09→23:20)
[2021-07-15] MEDS ORDERED: ENOXAPARIN SOD 40 MG/0.4 ML SYRINGE SC ONE (13:45)
[2021-07-15] MEDS: fentaNYL Drip 2500mCg/250mlNS 250 ML IV SCH (17:43)
[2021-07-15] MEDS: NOREPINEPHRINE 8 MG/250ML KIT 250 ML IV SCH (18:45)
[2021-07-16] VITALS (84 sets, daily range): BP systolic 91–142; BP diastolic 58–87
[2021-07-16 04:29] LABS: Basophils # (auto) 0 10 ^3/uL (0-0.2); Basophils % (auto) 0.2 % (0.0-2.0); Eosinophils # (auto) 0 10 ^3/uL (0-0.8); Eosinophils % (auto) 0.4 % (0.0-7.0); Hematocrit 41.8 % (41.0-53.0); Hemoglobin 14.1 g/dL (13.5-17.5); Lymphocytes # (auto) 0.5 10 ^3/uL (0.4-5.4); Lymphocytes % (auto) 4.9 % (10.0-50.0); Mean Corpuscular Hemoglobin 31.3 pg (28.0-32.0); Mean Corpuscular Hgb Conc. 33.6 g/dL (32.0-36.0); Mean Corpuscular Volume 93.1 fL (80.0-100.0); Monocytes # (auto) 0.4 10 ^3/uL (0-1.3); Neutrophils # (auto) 8.5 10 ^3/uL (1.6-8.6); Neutrophils % (auto) 90.5 % (37.0-80.0); Red Blood Cells 4.49 10^6/uL (4.5-5.90); Red Cell Distribution Width 13.3 % (11.8-14.3); White Blood Cell 9.4 10^3/uL (4.4-10.8)
[2021-07-16 04:47] LABS: Potassium 3.7 mmol/L (3.5-5.1)
[2021-07-16 04:50] LABS: Magnesium 2.7 mg/dL (1.6-2.6)
[2021-07-16] MEDS: MIDAZOLAM DRIP 50 mg/50mL 50 ML IV SCH ×4 (05:33→23:21)
[2021-07-16] MEDS: fentaNYL Drip 2500mCg/250mlNS 250 ML IV SCH ×2 (05:34→18:28)
[2021-07-16] MEDS: SALINE 0.65 % NASAL SPRAY 45ML BOTTLE EACHNOSTRI SCH ×4 (05:35→22:00)
[2021-07-16] MEDS: FUROSEMIDE 40 MG/4 ML VIAL IV SCH ×2 (05:45→18:26)
[2021-07-16] MEDS: PIPERACILLIN-TAZOB 3.375GM 100 ML IV SCH ×3 (05:46→23:23)
[2021-07-16] MEDS: ALBUTEROL SULF 2.5 MG/0.5ML(0.5%) NEB SOLN HHN SCH ×4 (06:00→22:10)
[2021-07-16] MEDS: InsuLIN REG 1unit/0.01ml Soln (100units/ml) SC SCH ×4 (07:00→22:00)
[2021-07-16] MEDS: ACCU-CHEK COMFORT CURVE STRIP VI SCH ×4 (07:33→23:53)
[2021-07-16] MEDS: PROPOFOL 100 ML IV SCH ×4 (08:43→23:22)
[2021-07-16] MEDS ORDERED: ROCURONIUM 10MG/ML 10ML VIAL IV ONE ×2 (09:45)
[2021-07-16] MEDS: ROCURONIUM BROMIDE 1,000 MG in D5W 5% 150 ML IV SCH (10:25)
[2021-07-16] MEDS: POTASSIUM EFFERVESENT TAB 25 MEQ GT SCH (10:32)
[2021-07-16] MEDS: ASCORBIC ACID 1,000 MG TAB PO SCH (10:33)
[2021-07-16] MEDS: PANTOPRAZOLE 40 MG/10 ML VIAL INJ IV SCH ×2 (10:33→23:25)
[2021-07-16] MEDS: ZINC SULFATE 220mg CAP or TAB PO SCH (10:33)
[2021-07-16] MEDS: DexAMETHasone SOD PHOS 10MG/1ML VIAL INJ IV SCH (10:33)
[2021-07-16] MEDS: ASPirin 81 mg TAB PO SCH (10:33)
[2021-07-16] MEDS: FLORASTOR (S. BOULARDII) 250 MG CAP PO SCH ×2 (10:33→23:23)
[2021-07-16] MEDS: CHOLECALCIFEROL (VITD3) 2,000 UNIT CAP/TAB PO SCH (10:33)
[2021-07-16] MEDS: ENOXAPARIN SOD 40 MG/0.4 ML SYRINGE SC SCH (10:34)
[2021-07-16] MEDS: NOREPINEPHRINE 8 MG/250ML KIT 250 ML IV SCH (18:28)
[2021-07-16] MEDS: Jevity 1.2 Cal/Fiber 1 Liter GT SCH (18:28)
[2021-07-17] VITALS (98 sets, daily range): BP systolic 89–143; BP diastolic 63–81
[2021-07-17] MEDS: MIDAZOLAM DRIP 50 mg/50mL 50 ML IV SCH ×4 (01:46→22:37)
[2021-07-17] MEDS: PROPOFOL 100 ML IV SCH ×4 (03:04→22:36)
[2021-07-17] MEDS: fentaNYL Drip 2500mCg/250mlNS 250 ML IV SCH ×2 (04:38→16:04)
[2021-07-17] MEDS: SALINE 0.65 % NASAL SPRAY 45ML BOTTLE EACHNOSTRI SCH ×4 (05:20→22:00)
[2021-07-17] MEDS: PIPERACILLIN-TAZOB 3.375GM 100 ML IV SCH ×3 (05:27→22:14)
[2021-07-17] MEDS: FUROSEMIDE 40 MG/4 ML VIAL IV SCH ×2 (05:27→18:23)
[2021-07-17] MEDS: ALBUTEROL SULF 2.5 MG/0.5ML(0.5%) NEB SOLN HHN SCH ×3 (06:15→18:52)
[2021-07-17] MEDS: InsuLIN REG 1unit/0.01ml Soln (100units/ml) SC SCH ×4 (06:27→22:15)
[2021-07-17] MEDS: ACCU-CHEK COMFORT CURVE STRIP VI SCH ×4 (06:27→22:14)
[2021-07-17] MEDS: ASCORBIC ACID 1,000 MG TAB PO SCH (11:35)
[2021-07-17] MEDS: ZINC SULFATE 220mg CAP or TAB PO SCH (11:35)
[2021-07-17] MEDS: ENOXAPARIN SOD 40 MG/0.4 ML SYRINGE SC SCH (11:36)
[2021-07-17] MEDS: CHOLECALCIFEROL (VITD3) 2,000 UNIT CAP/TAB PO SCH (11:37)
[2021-07-17] MEDS: ASPirin 81 mg TAB PO SCH (11:38)
[2021-07-17] MEDS: DexAMETHasone SOD PHOS 10MG/1ML VIAL INJ IV SCH (11:38)
[2021-07-17] MEDS: PANTOPRAZOLE 40 MG/10 ML VIAL INJ IV SCH ×2 (11:38→22:14)
[2021-07-17] MEDS: ROCURONIUM BROMIDE 1,000 MG in D5W 5% 150 ML IV SCH (11:39)
[2021-07-17] MEDS: POTASSIUM EFFERVESENT TAB 25 MEQ GT SCH (13:05)
[2021-07-17] MEDS: ACETAMINOPHEN 650 MG RECT SUPP PR PRN (13:05)
[2021-07-17] MEDS: FLORASTOR (S. BOULARDII) 250 MG CAP PO SCH ×2 (13:07→22:00)
[2021-07-17] MEDS: NOREPINEPHRINE 8 MG/250ML KIT 250 ML IV SCH (18:45)
[2021-07-18] VITALS (90 sets, daily range): BP systolic 98–128; BP diastolic 62–78
[2021-07-18] MEDS: fentaNYL Drip 2500mCg/250mlNS 250 ML IV SCH ×2 (02:44→13:20)
[2021-07-18] MEDS: PROPOFOL 100 ML IV SCH ×4 (02:46→22:45)
[2021-07-18] MEDS: MIDAZOLAM DRIP 50 mg/50mL 50 ML IV SCH ×7 (02:47→23:22)
[2021-07-18 04:47] LABS: Basophils # (auto) 0 10 ^3/uL (0-0.2); Basophils % (auto) 0.2 % (0.0-2.0); Eosinophils # (auto) 0.1 10 ^3/uL (0-0.8); Eosinophils % (auto) 0.5 % (0.0-7.0); Hematocrit 42.7 % (41.0-53.0); Hemoglobin 14.1 g/dL (13.5-17.5); Lymphocytes # (auto) 0.3 10 ^3/uL (0.4-5.4); Lymphocytes % (auto) 2.1 % (10.0-50.0); Mean Corpuscular Hemoglobin 31.2 pg (28.0-32.0); Mean Corpuscular Hgb Conc. 33.1 g/dL (32.0-36.0); Mean Corpuscular Volume 94.2 fL (80.0-100.0); Monocytes # (auto) 0.4 10 ^3/uL (0-1.3); Monocytes % (auto) 2.8 % (0.0-12.0); Neutrophils # (auto) 14.4 10 ^3/uL (1.6-8.6); Neutrophils % (auto) 94.4 % (37.0-80.0); Red Blood Cells 4.53 10^6/uL (4.5-5.90); White Blood Cell 15.2 10^3/uL (4.4-10.8)
[2021-07-18 05:17] LABS: Albumin 2.1 g/dL (3.4-5.0); BUN/Creatinine Ratio 42.6; Calcium 8.5 mg/dL (8.5-10.1); Magnesium 2.7 mg/dL (1.6-2.6); Potassium 3.9 mmol/L (3.5-5.1)
[2021-07-18 05:19] LABS: Bilirubin, Total 0.4 mg/dL (0.2-1.0); Total Protein 6.6 g/dL (6.4-8.2)
[2021-07-18] MEDS: SALINE 0.65 % NASAL SPRAY 45ML BOTTLE EACHNOSTRI SCH ×4 (05:27→21:45)
[2021-07-18] MEDS: FUROSEMIDE 40 MG/4 ML VIAL IV SCH ×2 (05:38→18:05)
[2021-07-18] MEDS: PIPERACILLIN-TAZOB 3.375GM 100 ML IV SCH ×3 (05:39→18:04)
[2021-07-18] MEDS: InsuLIN REG 1unit/0.01ml Soln (100units/ml) SC SCH ×4 (06:13→21:45)
[2021-07-18] MEDS: ACCU-CHEK COMFORT CURVE STRIP VI SCH ×4 (06:13→21:44)
[2021-07-18] MEDS: ALBUTEROL SULF 2.5 MG/0.5ML(0.5%) NEB SOLN HHN SCH ×3 (06:45→22:37)
[2021-07-18] MEDS: FLORASTOR (S. BOULARDII) 250 MG CAP PO SCH ×2 (09:32→21:45)
[2021-07-18] MEDS: DexAMETHasone SOD PHOS 10MG/1ML VIAL INJ IV SCH (09:32)
[2021-07-18] MEDS: ASCORBIC ACID 1,000 MG TAB PO SCH (09:32)
[2021-07-18] MEDS: ENOXAPARIN SOD 40 MG/0.4 ML SYRINGE SC SCH (09:32)
[2021-07-18] MEDS: ASPirin 81 mg TAB PO SCH (09:32)
[2021-07-18] MEDS: ZINC SULFATE 220mg CAP or TAB PO SCH (09:33)
[2021-07-18] MEDS: POTASSIUM EFFERVESENT TAB 25 MEQ GT SCH (09:33)
[2021-07-18] MEDS: PANTOPRAZOLE 40 MG/10 ML VIAL INJ IV SCH ×2 (09:33→21:45)
[2021-07-18] MEDS: CHOLECALCIFEROL (VITD3) 2,000 UNIT CAP/TAB PO SCH (09:33)
[2021-07-18] MEDS: Jevity 1.2 Cal/Fiber 1 Liter GT SCH (09:36)
[2021-07-18] MEDS: ROCURONIUM BROMIDE 1,000 MG in D5W 5% 150 ML IV SCH (13:01)
[2021-07-18] MEDS ORDERED: CLINIMIX PER PHARMACY 0 ML IV SCH (17:00)
[2021-07-18] MEDS: NOREPINEPHRINE 8 MG/250ML KIT 250 ML IV SCH (18:45)
[2021-07-18] MEDS ORDERED: AMINO ACID INFUSION IN D10W 1,000 ML IV NR (20:00)
[2021-07-19] VITALS (99 sets, daily range): BP systolic 88–144; BP diastolic 57–84
[2021-07-19] MEDS: fentaNYL Drip 2500mCg/250mlNS 250 ML IV SCH ×3 (02:00→22:04)
[2021-07-19] MEDS: MIDAZOLAM DRIP 50 mg/50mL 50 ML IV SCH ×5 (03:00→22:05)
[2021-07-19] MEDS: PROPOFOL 100 ML IV SCH ×4 (03:00→22:03)
[2021-07-19 04:39] LABS: Albumin 2.2 g/dL (3.4-5.0); Calcium 8.2 mg/dL (8.5-10.1); Magnesium 2.7 mg/dL (1.6-2.6); Potassium 3.2 mmol/L (3.5-5.1)
[2021-07-19 04:57] LABS: BUN/Creatinine Ratio 42.5; Bilirubin, Total 0.4 mg/dL (0.2-1.0); Phosphorus 1.4 mg/dL (2.5-4.90); Pre Albumin 44.7 mg/dL (20.0-40.0); Total Protein 6.4 g/dL (6.4-8.2)
[2021-07-19] MEDS ORDERED: BUDESONIDE (INHALATION) 0.5 MG/2 ML NEB ONE (05:59)
[2021-07-19] MEDS: FUROSEMIDE 40 MG/4 ML VIAL IV SCH ×2 (06:00→18:14)
[2021-07-19] MEDS ORDERED: POTASSIUM CHL 20MEQ/100ML 100 ML IV ONE (06:00)
[2021-07-19] MEDS: SALINE 0.65 % NASAL SPRAY 45ML BOTTLE EACHNOSTRI SCH ×4 (06:09→22:06)
[2021-07-19] MEDS: ACCU-CHEK COMFORT CURVE STRIP VI SCH ×3 (06:09→18:13)
[2021-07-19] MEDS: InsuLIN REG 1unit/0.01ml Soln (100units/ml) SC SCH ×3 (06:09→18:14)
[2021-07-19] MEDS: PIPERACILLIN-TAZOB 3.375GM 100 ML IV SCH ×3 (06:09→22:03)
[2021-07-19] MEDS ORDERED: POTASSIUM PHOSPHATE 44 MEQ in D5W 5% 250 ML IV ONE (08:45)
[2021-07-19] MEDS ORDERED: POTASSIUM PHOSPHATE 26.4 MEQ in SODIUM CHL 0.9% 100 ML IV ONE (10:30)
[2021-07-19] MEDS: POTASSIUM EFFERVESENT TAB 25 MEQ GT SCH (10:57)
[2021-07-19] MEDS: DexAMETHasone SOD PHOS 10MG/1ML VIAL INJ IV SCH (10:57)
[2021-07-19] MEDS: FLORASTOR (S. BOULARDII) 250 MG CAP PO SCH ×2 (10:58→22:05)
[2021-07-19] MEDS: ASCORBIC ACID 1,000 MG TAB PO SCH (10:58)
[2021-07-19] MEDS: ASPirin 81 mg TAB PO SCH (10:58)
[2021-07-19] MEDS: ZINC SULFATE 220mg CAP or TAB PO SCH (10:58)
[2021-07-19] MEDS: PANTOPRAZOLE 40 MG/10 ML VIAL INJ IV SCH ×2 (10:58→22:03)
[2021-07-19] MEDS: ENOXAPARIN SOD 40 MG/0.4 ML SYRINGE SC SCH (10:58)
[2021-07-19] MEDS: CHOLECALCIFEROL (VITD3) 2,000 UNIT CAP/TAB PO SCH (10:58)
[2021-07-19] MEDS: ROCURONIUM BROMIDE 1,000 MG in D5W 5% 150 ML IV SCH (11:59)
[2021-07-19] MEDS ORDERED: DEXTROSE (50%) 50ML SYRG IV SCH (12:00)
[2021-07-19] MEDS: ALBUTEROL SULF 2.5 MG/0.5ML(0.5%) NEB SOLN HHN SCH ×2 (13:00→22:20)
[2021-07-19] MEDS: POTASSIUM CHL 20MEQ/100ML 100 ML IV SCH ×5 (16:05→23:06)
[2021-07-19] MEDS: NOREPINEPHRINE 8 MG/250ML KIT 250 ML IV SCH (18:45)
[2021-07-19] MEDS ORDERED: AMINO ACID INFUSION IN D10W 1,000 ML IV NR (20:00)
[2021-07-20] VITALS (97 sets, daily range): BP systolic 87–122; BP diastolic 47–73
[2021-07-20] MEDS: InsuLIN REG 1unit/0.01ml Soln (100units/ml) SC SCH ×5 (00:31→23:36)
[2021-07-20] MEDS: MIDAZOLAM DRIP 50 mg/50mL 50 ML IV SCH ×2 (01:38→05:30)
[2021-07-20] MEDS: PROPOFOL 100 ML IV SCH ×3 (02:15→10:15)
[2021-07-20] MEDS: ACCU-CHEK COMFORT CURVE STRIP VI SCH ×5 (05:26→23:15)
[2021-07-20] MEDS: SALINE 0.65 % NASAL SPRAY 45ML BOTTLE EACHNOSTRI SCH ×4 (05:27→22:29)
[2021-07-20] MEDS: PIPERACILLIN-TAZOB 3.375GM 100 ML IV SCH ×3 (05:29→22:30)
[2021-07-20] MEDS: FUROSEMIDE 40 MG/4 ML VIAL IV SCH ×2 (06:00→18:00)
[2021-07-20 06:15] LABS: Basophils # (auto) 0 10 ^3/uL (0-0.2); Basophils % (auto) 0.1 % (0.0-2.0); Eosinophils # (auto) 0.1 10 ^3/uL (0-0.8); Eosinophils % (auto) 0.5 % (0.0-7.0); Hematocrit 38.7 % (41.0-53.0); Hemoglobin 12.8 g/dL (13.5-17.5); Lymphocytes # (auto) 0.3 10 ^3/uL (0.4-5.4); Lymphocytes % (auto) 2.4 % (10.0-50.0); Mean Corpuscular Hemoglobin 31.1 pg (28.0-32.0); Mean Corpuscular Hgb Conc. 33.2 g/dL (32.0-36.0); Mean Corpuscular Volume 93.5 fL (80.0-100.0); Monocytes # (auto) 0.9 10 ^3/uL (0-1.3); Monocytes % (auto) 6.5 % (0.0-12.0); Neutrophils # (auto) 11.9 10 ^3/uL (1.6-8.6); Neutrophils % (auto) 90.5 % (37.0-80.0); Red Blood Cells 4.13 10^6/uL (4.5-5.90); Red Cell Distribution Width 13.2 % (11.8-14.3); White Blood Cell 13.1 10^3/uL (4.4-10.8)
[2021-07-20 06:31] LABS: Albumin 2.1 g/dL (3.4-5.0); Calcium 8.2 mg/dL (8.5-10.1); Magnesium 2.3 mg/dL (1.6-2.6)
[2021-07-20 06:35] LABS: BUN/Creatinine Ratio 39.2; Bilirubin, Total 0.4 mg/dL (0.2-1.0); Phosphorus 1.5 mg/dL (2.5-4.90); Potassium 4.7 mmol/L (3.5-5.1)
[2021-07-20] MEDS: ALBUTEROL SULF 2.5 MG/0.5ML(0.5%) NEB SOLN HHN SCH ×3 (07:00→22:34)
[2021-07-20] MEDS: ZINC SULFATE 220mg CAP or TAB PO SCH (08:56)
[2021-07-20] MEDS: ASCORBIC ACID 1,000 MG TAB PO SCH (08:56)
[2021-07-20] MEDS: DexAMETHasone SOD PHOS 10MG/1ML VIAL INJ IV SCH (08:56)
[2021-07-20] MEDS: PANTOPRAZOLE 40 MG/10 ML VIAL INJ IV SCH ×2 (08:57→22:00)
[2021-07-20] MEDS: CHOLECALCIFEROL (VITD3) 2,000 UNIT CAP/TAB PO SCH (08:57)
[2021-07-20] MEDS: ENOXAPARIN SOD 40 MG/0.4 ML SYRINGE SC SCH (08:57)
[2021-07-20] MEDS: FLORASTOR (S. BOULARDII) 250 MG CAP PO SCH ×2 (08:57→22:00)
[2021-07-20] MEDS: ASPirin 81 mg TAB PO SCH (08:57)
[2021-07-20] MEDS: POTASSIUM CHL 20MEQ/100ML 100 ML IV SCH ×2 (10:00→22:00)
[2021-07-20] MEDS: fentaNYL Drip 2500mCg/250mlNS 250 ML IV SCH ×2 (10:16→22:32)
[2021-07-20] MEDS ORDERED: SODIUM PHOSPHATES 24 MEQ in SODIUM CHL 0.9% 100 ML IV ONE (13:00)
[2021-07-20] MEDS: ROCURONIUM BROMIDE 1,000 MG in D5W 5% 150 ML IV SCH (14:32)
[2021-07-20] MEDS: NOREPINEPHRINE 8 MG/250ML KIT 250 ML IV SCH (18:45)
[2021-07-20] MEDS ORDERED: AMINO ACID INFUSION IN D10W 1,000 ML IV NR (20:00)
[2021-07-21] VITALS (96 sets, daily range): BP systolic 62–133; BP diastolic 55–75
[2021-07-21] MEDS: PROPOFOL 100 ML IV SCH ×4 (00:40→19:10)
[2021-07-21] MEDS: MIDAZOLAM DRIP 50 mg/50mL 50 ML IV SCH ×5 (03:30→22:01)
[2021-07-21 05:19] LABS: Albumin 2.1 g/dL (3.4-5.0); BUN/Creatinine Ratio 43.7; Calcium 8.1 mg/dL (8.5-10.1); Magnesium 2.4 mg/dL (1.6-2.6); Potassium 3.9 mmol/L (3.5-5.1)
[2021-07-21 05:21] LABS: Bilirubin, Total 0.5 mg/dL (0.2-1.0); Phosphorus 1.8 mg/dL (2.5-4.90); Total Protein 5.7 g/dL (6.4-8.2)
[2021-07-21] MEDS: FUROSEMIDE 40 MG/4 ML VIAL IV SCH ×2 (05:25→18:01)
[2021-07-21] MEDS: SALINE 0.65 % NASAL SPRAY 45ML BOTTLE EACHNOSTRI SCH ×4 (05:25→21:45)
[2021-07-21] MEDS: ACCU-CHEK COMFORT CURVE STRIP VI SCH ×3 (05:31→17:49)
[2021-07-21] MEDS: InsuLIN REG 1unit/0.01ml Soln (100units/ml) SC SCH ×3 (05:32→17:50)
[2021-07-21] MEDS: PIPERACILLIN-TAZOB 3.375GM 100 ML IV SCH ×3 (06:00→21:45)
[2021-07-21] MEDS ORDERED: AMINO ACID INFUSION IN D10W 1,000 ML IV NR ×2 (07:15→20:00)
[2021-07-21] MEDS: ALBUTEROL SULF 2.5 MG/0.5ML(0.5%) NEB SOLN HHN SCH ×3 (09:37→18:48)
[2021-07-21] MEDS: ROCURONIUM BROMIDE 1,000 MG in D5W 5% 150 ML IV SCH ×2 (09:45→19:30)
[2021-07-21] MEDS: POTASSIUM CHL 20MEQ/100ML 100 ML IV SCH ×2 (10:26→21:45)
[2021-07-21] MEDS: PANTOPRAZOLE 40 MG/10 ML VIAL INJ IV SCH ×2 (10:26→21:45)
[2021-07-21] MEDS: DexAMETHasone SOD PHOS 10MG/1ML VIAL INJ IV SCH ×2 (10:26→21:45)
[2021-07-21] MEDS: fentaNYL Drip 2500mCg/250mlNS 250 ML IV SCH ×2 (10:27→22:00)
[2021-07-21] MEDS: ZINC SULFATE 220mg CAP or TAB PO SCH (10:27)
[2021-07-21] MEDS: FLORASTOR (S. BOULARDII) 250 MG CAP PO SCH ×2 (10:27→21:45)
[2021-07-21] MEDS: CHOLECALCIFEROL (VITD3) 2,000 UNIT CAP/TAB PO SCH (10:27)
[2021-07-21] MEDS: ASCORBIC ACID 1,000 MG TAB PO SCH (10:27)
[2021-07-21] MEDS: ENOXAPARIN SOD 40 MG/0.4 ML SYRINGE SC SCH (10:27)
[2021-07-21] MEDS: ASPirin 81 mg TAB PO SCH (10:27)
[2021-07-21] MEDS ORDERED: SODIUM PHOSPH 24MEQ(18MMOL) IN NS 100 ML IV ONE ×2 (17:00→18:30)
[2021-07-21] MEDS: NOREPINEPHRINE 8 MG/250ML KIT 250 ML IV SCH (18:01)
[2021-07-22] VITALS (104 sets, daily range): BP systolic 40–187; BP diastolic 23–99
[2021-07-22] MEDS: PROPOFOL 100 ML IV SCH ×3 (00:44→06:50)
[2021-07-22] MEDS: ACCU-CHEK COMFORT CURVE STRIP VI SCH ×4 (00:44→18:00)
[2021-07-22] MEDS: InsuLIN REG 1unit/0.01ml Soln (100units/ml) SC SCH ×4 (00:45→18:00)
[2021-07-22] MEDS: MIDAZOLAM DRIP 50 mg/50mL 50 ML IV SCH ×3 (02:45→09:52)
[2021-07-22 04:12] LABS: Urine Amorphous Crystal FEW /hpf (None Seen); Urine Bacteria FEW /hpf (None Seen); Urine Blood 3+ /uL (Negative); Urine Hyaline Cast FEW /lpf (0 - 2); Urine Specific Gravity 1.022 (1.001-1.035); Urine WBC 18 /hpf (0 - 3)
[2021-07-22 04:24] LABS: Albumin 2.2 g/dL (3.4-5.0); Magnesium 2.2 mg/dL (1.6-2.6); Potassium 4.2 mmol/L (3.5-5.1)
[2021-07-22 04:28] LABS: BUN/Creatinine Ratio 36.3; Bilirubin, Total 0.6 mg/dL (0.2-1.0); Phosphorus 1.8 mg/dL (2.5-4.90); Total Protein 5.8 g/dL (6.4-8.2)
[2021-07-22 04:29] LABS: Basophils # (auto) 0 10 ^3/uL (0-0.2); Basophils % (auto) 0.3 % (0.0-2.0); Eosinophils # (auto) 0 10 ^3/uL (0-0.8); Eosinophils % (auto) 0.1 % (0.0-7.0); Hematocrit 37.3 % (41.0-53.0); Hemoglobin 12.5 g/dL (13.5-17.5); Lymphocytes # (auto) 0.2 10 ^3/uL (0.4-5.4); Lymphocytes % (auto) 1.9 % (10.0-50.0); Mean Corpuscular Hemoglobin 31.5 pg (28.0-32.0); Mean Corpuscular Hgb Conc. 33.6 g/dL (32.0-36.0); Mean Corpuscular Volume 93.7 fL (80.0-100.0); Monocytes # (auto) 0.2 10 ^3/uL (0-1.3); Monocytes % (auto) 2.5 % (0.0-12.0); Neutrophils # (auto) 8.9 10 ^3/uL (1.6-8.6); Neutrophils % (auto) 95.2 % (37.0-80.0); Nucleated Red Blood Cells % 0.1 %; Red Blood Cells 3.98 10^6/uL (4.5-5.90); Red Cell Distribution Width 13.3 % (11.8-14.3); White Blood Cell 9.3 10^3/uL (4.4-10.8)
[2021-07-22] MEDS: SALINE 0.65 % NASAL SPRAY 45ML BOTTLE EACHNOSTRI SCH ×3 (05:45→18:00)
[2021-07-22] MEDS: FUROSEMIDE 40 MG/4 ML VIAL IV SCH ×2 (05:46→18:00)
[2021-07-22] MEDS: PIPERACILLIN-TAZOB 3.375GM 100 ML IV SCH ×2 (05:46→14:00)
[2021-07-22] MEDS: ALBUTEROL SULF 2.5 MG/0.5ML(0.5%) NEB SOLN HHN SCH ×2 (07:03→13:40)
[2021-07-22] MEDS: POTASSIUM CHL 20MEQ/100ML 100 ML IV SCH (09:52)
[2021-07-22] MEDS: ENOXAPARIN SOD 40 MG/0.4 ML SYRINGE SC SCH (09:52)
[2021-07-22] MEDS: PANTOPRAZOLE 40 MG/10 ML VIAL INJ IV SCH (09:52)
[2021-07-22] MEDS: DexAMETHasone SOD PHOS 10MG/1ML VIAL INJ IV SCH (09:53)
[2021-07-22] MEDS: CHOLECALCIFEROL (VITD3) 2,000 UNIT CAP/TAB PO SCH (09:53)
[2021-07-22] MEDS: ZINC SULFATE 220mg CAP or TAB PO SCH (09:53)
[2021-07-22] MEDS: FLORASTOR (S. BOULARDII) 250 MG CAP PO SCH (09:53)
[2021-07-22] MEDS: ASPirin 81 mg TAB PO SCH (09:54)
[2021-07-22] MEDS: fentaNYL Drip 2500mCg/250mlNS 250 ML IV SCH (09:57)
[2021-07-22] MEDS: ASCORBIC ACID 1,000 MG TAB PO SCH (10:00)
[2021-07-22] MEDS ORDERED: SODIUM PHOSPHATES 40 MEQ in D5W 5% 250 ML IV ONE (13:00)
[2021-07-22] MEDS: NOREPINEPHRINE 8 MG/250ML KIT 250 ML IV SCH (15:15)
[2021-07-22] MEDS ORDERED: PHENYLEPHRINE IV 250 ML IV ONE (15:29)
[2021-07-22 16:03] LABS: Albumin 2.4 g/dL (3.4-5.0); Calcium 8.2 mg/dL (8.5-10.1); Potassium 5.5 mmol/L (3.5-5.1)
[2021-07-22 16:06] LABS: BUN/Creatinine Ratio 29.5; Bilirubin, Total 0.8 mg/dL (0.2-1.0); Total Protein 6.1 g/dL (6.4-8.2)
[2021-07-22 16:47] LABS: Basophils # (auto) 0 10 ^3/uL (0-0.2); Basophils % (auto) 0.2 % (0.0-2.0); Eosinophils # (auto) 0 10 ^3/uL (0-0.8); Eosinophils % (auto) 0.1 % (0.0-7.0); Hematocrit 40.5 % (41.0-53.0); Hemoglobin 13.5 g/dL (13.5-17.5); Lymphocytes # (auto) 0.6 10 ^3/uL (0.4-5.4); Lymphocytes % (auto) 6.1 % (10.0-50.0); Mean Corpuscular Hemoglobin 31.6 pg (28.0-32.0); Mean Corpuscular Hgb Conc. 33.4 g/dL (32.0-36.0); Mean Corpuscular Volume 94.8 fL (80.0-100.0); Monocytes # (auto) 0.4 10 ^3/uL (0-1.3); Monocytes % (auto) 3.5 % (0.0-12.0); Neutrophils # (auto) 9.5 10 ^3/uL (1.6-8.6); Neutrophils % (auto) 90.1 % (37.0-80.0); Nucleated Red Blood Cells % 0.1 %; Red Blood Cells 4.27 10^6/uL (4.5-5.90); Red Cell Distribution Width 13.3 % (11.8-14.3); White Blood Cell 10.5 10^3/uL (4.4-10.8)
[2021-07-22] MEDS ORDERED: PHENYLEPHRINE IV 250 ML IV SCH (18:45)
[2021-07-22] MEDS ORDERED: MORPHINE SULFATE INJECTION 2 MG/ML SYRG IV PRN (19:00)
[2021-07-22] MEDS ORDERED: LORazepam 2MG/ML-1ML VIAL IV PRN (19:00)
[2021-07-22] MEDS ORDERED: AMINO ACID INFUSION IN D10W 1,000 ML IV NR (20:00)
== END 2021-07-22 22:07 | DRG 870 ==
LOC: ER 11:32 → EDBD 11:32 → TELE 15:20 → TELE-EAST 07-04 12:41 → ICU WEST 07-06 10:55
PROVIDERS: ADMIT Internal Medicine; ATTEND Internal Medicine
PROC: XW033E5 Introduction of Remdesivir Anti-infective into Peripheral Vein, Percutaneous Approach, New Technology Group 5 (ICD-10-PCS; 2021-06-30)
PROC: 5A1955Z Respiratory Ventilation, Greater than 96 Consecutive Hours (ICD-10-PCS; principal; 2021-07-06)
PROC: 0BH17EZ Insertion of Endotracheal Airway into Trachea, Via Natural or Artificial Opening (ICD-10-PCS; 2021-07-06)
PROC: 5A09357 Assistance with Respiratory Ventilation, Less than 24 Consecutive Hours, Continuous Positive Airway Pressure (ICD-10-PCS; 2021-07-06)
PROC: 02HV33Z Insertion of Infusion Device into Superior Vena Cava, Percutaneous Approach (ICD-10-PCS; 2021-07-06)
PROC: B548ZZA Ultrasonography of Superior Vena Cava, Guidance (ICD-10-PCS; 2021-07-06)
PROC: XW033H5 Introduction of Tocilizumab into Peripheral Vein, Percutaneous Approach, New Technology Group 5 (ICD-10-PCS; 2021-07-13)
DX: A41.89 Other specified sepsis (principal); J96.01 Acute respiratory failure with hypoxia; J12.82 Pneumonia due to coronavirus disease 2019; U07.1 COVID-19; J98.11 Atelectasis; I25.110 Atherosclerotic heart disease of native coronary artery with unstable angina pectoris; E87.3 Alkalosis; E87.6 Hypokalemia; R73.9 Hyperglycemia, unspecified; D69.6 Thrombocytopenia, unspecified; I25.10 Atherosclerotic heart disease of native coronary artery without angina pectoris; E66.3 Overweight; E78.5 Hyperlipidemia, unspecified; R73.03 Prediabetes; E88.09 Other disorders of plasma-protein metabolism, not elsewhere classified; K76.0 Fatty (change of) liver, not elsewhere classified; Z51.5 Encounter for palliative care; I10 Essential (primary) hypertension
CPT/HCPCS: 36415; 36600; 71045; 71275; 74018; 80048; 80053; 80061; 80307; 81001; 82040; 82306; 82550; 82728; 82805; 82962; 83036; 83605; 83615; 83735; 83880; 84100; 84132; 84443; 84478; 84484; 85025; 85379; 85610; 85652; 85730; 86141; 86850; 86900; 86901; 87040; 87070; 87077; 87081; 87086; 87088; 87186; 87205; 87426; 93005; 93306; 94002; 94003; 94640; 94660; 96361; 96374; 99291; A4565; C9113; G0378; J0696; J1100; J1815; J2001; J2250; J2543; J2704; J3480; J3490; J7060